=== PATIENT | female | born 1975 | race Hispanic/Latino ===

== ENCOUNTER → 2022-03-26 | Outpatient (CLI) | payer MEDICAID | END | disposition home or self-care (01) | LOC: LAB 10:25 | PROVIDERS: ATTEND Family Medicine | DX: Z01.818 Encounter for other preprocedural examination (principal) | CPT/HCPCS: 93005 ==

== ENCOUNTER 2022-12-17 07:20 | Day surgery (SDC) | payer MEDICAID ==
[~2022-12-17] VITALS: Ht 162.6 cm; Wt 149.1 kg
[2022-12-17 07:30] VITALS: BP 140/82; PULSE 80; RESP 16
[2022-12-17] MEDS ORDERED: HYDR-4153 PO (08:37)
[2022-12-17] MEDS ORDERED: METO-409 PO (08:37)
[2022-12-17] MEDS ORDERED: LOSA100T59 PO (08:37)
[2022-12-17] MEDS ORDERED: PROPOFOL 10 MG/ML 20ML VIAL IV ONE (09:14)
== END 2022-12-17 09:50 | disposition home or self-care (01) ==
LOC: DAH 07:20
PROVIDERS: ATTEND Surgery
DX: K21.9 Gastro-esophageal reflux disease without esophagitis (principal); Z20.822 Contact with and (suspected) exposure to COVID-19; K29.50 Unspecified chronic gastritis without bleeding; E66.01 Morbid (severe) obesity due to excess calories; I10 Essential (primary) hypertension; G47.30 Sleep apnea, unspecified; Z90.710 Acquired absence of both cervix and uterus; Z98.890 Other specified postprocedural states; Z86.73 Personal history of transient ischemic attack (TIA), and cerebral infarction without residual deficits; Z82.49 Family history of ischemic heart disease and other diseases of the circulatory system; Z83.3 Family history of diabetes mellitus; Z82.3 Family history of stroke; Z80.9 Family history of malignant neoplasm, unspecified; Z68.43 Body mass index [BMI] 50.0-59.9, adult
CPT/HCPCS: 93005; 88305; 88312; 43239; J3490; A4620; A4215 ×2; A4223; A4657; A7002; A4222; A4221; A4663; J7030; A4606; J2704